=== PATIENT | male | born 1935 | race Caucasian/White ===

== ENCOUNTER 2017-04-06 17:12 | Emergency (ER) | payer MEDICARE, BC ==
[~2017-04-06] VITALS: Ht 177.8 cm; Wt 89.0 kg
[~2017-04-06 17:12] MED LIST: ASPI81 PO; CLOP75 PO; IMDU60TA PO; RIVA10 PO; TOPR25TA2 PO; ZOCO80TA PO
[2017-04-06 17:19] VITALS: BP 128/62; PULSE 71; RESP 16; TEMP 98.1; O2SAT 96
[2017-04-06] MEDS ORDERED: SODIUM CHLORIDE 0.9% FLUSH 10 ML FLUSH IV FLUSH PRN (17:30)
[2017-04-06] MEDS ORDERED: METO50TA11 PO (17:36)
[2017-04-06] MEDS ORDERED: CLOP75TA PO (17:36)
[2017-04-06] MEDS ORDERED: ISOS60TA PO (17:36)
[2017-04-06] MEDS ORDERED: ATOR1TAB18 PO (17:36)
[2017-04-06] MEDS ORDERED: METR250T15 PO (17:36)
[2017-04-06] MEDS ORDERED: NIAC1TAB PO (17:36)
[2017-04-06 17:59] LABS: AUTOMATED NEUTROPHIL # 4.5 TH/MM3 (1.8-7.7); BASOPHIL % 0.4 % (0.0-2.0); EOSINOPHIL # 0.1 TH/MM3 (0-0.4); EOSINOPHIL % 1.8 % (0.0-4.0); HEMATOCRIT 40.7 % (39.0-51.0); HEMO FLAGS DIFF FINAL; LYMPH % 19.3 % (9.0-44.0); LYMPHOCYTE # 1.3 TH/MM3 (1.0-4.8); MEAN CELL VOLUME 89.9 FL (80.0-100.0); MEAN CORPUSCULAR HEMOGLOBIN 30.7 PG (27.0-34.0); MEAN CORPUSCULAR HGB CONC 34.1 % (32.0-36.0); MONO % 13.2 % (0.0-8.0); NEUT % 65.3 % (16.0-70.0); PLATELET COUNT 258 TH/MM3 (150-450); RED BLOOD COUNT 4.52 MIL/MM3 (4.50-5.90); RED CELL DISTRIBUTION WIDTH 13.1 % (11.6-17.2); WHITE BLOOD COUNT 6.8 TH/MM3 (4.0-11.0)
--- NOTE | 2017-04-06 17:59 | PD ---
HPI Chief Complaint: Abdominal Pain Time Seen by Provider: 17:22 Travel History International Travel<30 days: No Contact w/Intl Traveler<30days: No Traveled to known affect area: No History of Present Illness HPI 82-year-old male arrives here complaining of diarrhea for 2 days. He also has pain left upper quadrant. Appetite has been decreased. He is unsure if he has ingested any idiosyncratic food. No vomiting. No fever. Onset gradual. Timing is constant. There is no radiation of the left upper quadrant pain. He reports at least 15 episodes of diarrhea. Diarrhea has been nonbloody. PFSH Past Medical History Autoimmune Disease: No Cancer: No Cardiovascular Problems: Yes (CABG X3,[place]) High Cholesterol: Yes Chemotherapy: No Chest Pain: Yes Congestive Heart Failure: No Diabetes: No Endocrine: No Glaucoma: No Genitourinary: Yes Hepatitis: No Hiatal Hernia: No Hypertension: Yes Immune Disorder: No Kidney Stones: Yes Musculoskeletal: No Neurologic: No Psychiatric: No Reproductive: No Respiratory: No Myocardial Infarction: Yes (1988) Radiation Therapy: No Thyroid Disease: No Past Surgical History Abdominal Surgery: No AICD: No Cardiac Surgery: Yes (CABG 1988) Ear Surgery: No Eye Surgery: Yes (LEFT AND RIGHT CATARACT SURGERY) Genitourinary Surgery: No Gynecologic Surgery: No Oral Surgery: No Pacemaker: No Thoracic Surgery: No Other Surgery: Yes Social History Alcohol Use: Yes (VERY RARELY) Tobacco Use: No (30 YEARS AGO QUIT) Substance Use: No Allergies-Medications (Allergen,Severity, Reaction): Coded Allergies: No Known Allergies (Verified , 04/06/17) Reported Meds & Prescriptions Reported Meds & Active Scripts Active Lomotil (Diphenoxylate-Atropine) 2.5-0.025 Mg Tab 1 Tab PO Q6H PRN Reported Metronidazole 250 Mg Tab 250 Mg PO TID Atorvastatin (Atorvastatin Calcium) 80 Mg Tab 80 Mg PO HS Isosorbide Mononitrate ER (Isosorbide Mononitrate) 60 Mg Tab 60 Mg PO DAILY Metoprolol Succinate ER 24 HR (Metoprolol Succinate) 50 Mg Tab 50 Mg PO DAILY Niacin ER 500 Mg Tab 500 Mg PO HS Clopidogrel (Clopidogrel Bisulfate) 75 Mg Tab 75 Mg PO DAILY Review of Systems Except as stated in HPI: all other systems reviewed are Neg Physical Exam Narrative GENERAL: 82-year-old male well-nourished well-developed no acute distress SKIN: Focused skin assessment warm/dry. HEAD: Atraumatic. Normocephalic. EYES: Pupils equal and round. No scleral icterus. No injection or drainage. ENT: No nasal bleeding or discharge. Mucous membranes pink and moist. NECK: Trachea midline. No JVD. CARDIOVASCULAR: Regular rate and rhythm. No murmur appreciated. RESPIRATORY: No accessory muscle use. Clear to auscultation. Breath sounds equal bilaterally. GASTROINTESTINAL: Soft. Tenderness to palpation in the left upper quadrant. MUSCULOSKELETAL: No obvious deformities. No clubbing. No cyanosis. No edema. NEUROLOGICAL: Awake and alert. No obvious cranial nerve deficits. Motor grossly within normal limits. Normal speech. PSYCHIATRIC: Appropriate mood and affect; insight and judgment normal. Data Data Last Documented VS Vital Signs Date Time Temp Pulse Resp B/P Pulse Ox O2 Delivery O2 Flow Rate FiO2 04/06/17 19:19 97.6 82 16 122/62 97 04/06/17 18:00 Room Air Vital signs reviewed Orders Complete Blood Count With Diff (04/06/17 17:27) Comprehensive Metabolic Panel (04/06/17 17:27) Lipase (04/06/17 17:27) Ct Abd/Pel W Iv Contrast(Rout) (04/06/17 17:27) Iv Access Insert/Monitor (04/06/17 17:27) Ecg Monitoring (04/06/17 17:27) Oximetry (04/06/17 17:27) Sodium Chloride 0.9% Flush (Ns Flush) (04/06/17 17:30) Iohexol 350 Inj (Omnipaque 350 Inj) (04/06/17 18:35) Sodium Chlorid 0.9% 500 Ml Inj (Ns 500 M (04/06/17 18:45) Labs Laboratory Tests Test 04/06/17 17:50 White Blood Count 6.8 TH/MM3 Red Blood Count 4.52 MIL/MM3 Hemoglobin 13.9 GM/DL Hematocrit 40.7 % Mean Corpuscular Volume 89.9 FL Mean Corpuscular Hemoglobin 30.7 PG Mean Corpuscular Hemoglobin 34.1 % Concent Red Cell Distribution Width 13.1 % Platelet Count 258 TH/MM3 Mean Platelet Volume 6.9 FL Neutrophils (%) (Auto) 65.3 % Lymphocytes (%) (Auto) 19.3 % Monocytes (%) (Auto) 13.2 % Eosinophils (%) (Auto) 1.8 % Basophils (%) (Auto) 0.4 % Neutrophils # (Auto) 4.5 TH/MM3 Lymphocytes # (Auto) 1.3 TH/MM3 Monocytes # (Auto) 0.9 TH/MM3 Eosinophils # (Auto) 0.1 TH/MM3 Basophils # (Auto) 0.0 TH/MM3 CBC Comment DIFF FINAL Differential Comment Sodium Level 143 MEQ/L Potassium Level 3.6 MEQ/L Chloride Level 110 MEQ/L Carbon Dioxide Level 24.2 MEQ/L Anion Gap 9 MEQ/L Blood Urea Nitrogen 11 MG/DL Creatinine 1.00 MG/DL Estimat Glomerular Filtration 72 ML/MIN Rate Random Glucose 90 MG/DL Calcium Level 7.9 MG/DL Total Bilirubin 0.8 MG/DL Aspartate Amino Transf 51 U/L (AST/SGOT) Alanine Aminotransferase 79 U/L (ALT/SGPT) Alkaline Phosphatase 76 U/L Total Protein 6.6 GM/DL Albumin 3.4 GM/DL Lipase 157 U/L [facility] Medical Decision Making Medical Screen Exam Complete: Yes Emergency Medical Condition: Yes Medical Record Reviewed: Yes Differential Diagnosis Constipation, Gastritis, Acute Cholecystitis, Biliary Colic, Pancreatitis, BELTRAN , Hepatitis, Bowel Obstruction, Cystitis, Mesenteric Ischemia, AAA, Appendicitis , Renal Stone/Hydronephrosis, GERD, perforated viscous Narrative Course CBC & BMP Diagram 04/06/17 17:50 Last Impressions Abdomen/Pelvis CT 04/06/17 1727 Signed Impressions: Service Date/Time: Thursday, April 06, 2017 18:14 - CONCLUSION: 1. Mild dilation of proximal small bowel loops and right inguinal hernia with small bowel partially extending into the orifice of the hernia. There is some fluid within the right hernial sac. The distal small bowel loops are fluid filled, but not dilated. The findings suggest possible partial obstruction related to the right inguinal hernia. 2. 12 mm calcified stone lower pole of the left kidney with segmental hydronephrosis in the lower pole collecting system. Eran Aguayo MD THERE IS NO INGUINAL HERNIA ON EXAM, NOR IS THERE ABDOMINAL PAIN OR VOMITING. THE PRESENTATION IS NOT CONSISTENT WITH SMALL BOWEL OBSTRUCTION. PT IS WITHOUT COMPLAINT AT 1910. HE IS READY TO GO HOME AND CONSIDERED SAFE FOR DISCHARGE. RETURN PRECAUTIONS DETAILED WITH PATIENT AND COMPANY. BOTH ARE IN AGREEMENT WITH PLAN: TRACY WORRELL, F/U W PMD. Diagnosis Primary Impression: Diarrhea Qualified Code: R19.7 - Diarrhea, unspecified type Referrals: Estrada De La Rosa MD 2 days Additional Instructions: You have a choice when it comes to health care, and we are glad that you chose [facility]. Hopefully, we have met your expectations on today's visit. You are welcome to return to [facility] at any time, as we are committed to meeting the health care needs of our community. IF YOU DEVELOP ABDOMINAL PAIN, VOMITING OR FEVER PLEASE RETURN TO THE ER WITHOUT DELAY ESPECIALLY IF IT OCCURS WITHIN THE NEXT 8 HOURS. Med/Other Pt SpecificInfo: Prescription(s) given Scripts Diphenoxylate-Atropine (Lomotil)2.5-0.025 Mg Tab1 Tab PO Q6H PRN (DIARRHEA) #6 TAB Ref 0 Prov:Flaco Kruger MD 04/06/17 Disposition: 01 DISCHARGE HOME Condition: Stable Flaco Kruger MD Apr 06, 2017 17:59
[2017-04-06 18:00] VITALS: RESP 18; O2SAT 96
[2017-04-06 18:06] LABS: CHLORIDE 110 MEQ/L (98-107); POTASSIUM 3.6 MEQ/L (3.5-5.1); SODIUM (NA) 143 MEQ/L (136-145)
[2017-04-06 18:11] LABS: ANION GAP 9 MEQ/L (5-15); BICARBONATE 24.2 MEQ/L (21.0-32.0); BLOOD UREA NITROGEN 11 MG/DL (7-18)
[2017-04-06 18:13] LABS: ALT (GPT) 79 U/L (12-78)
[2017-04-06 18:14] LABS: AST (GOT) 51 U/L (15-37); GLOMERULAR FILTRATION RATE 72 ML/MIN (>89)
[2017-04-06 18:15] LABS: TOTAL BILIRUBIN ADULT 0.8 MG/DL (0.2-1.0)
[2017-04-06 18:16] LABS: ALKALINE PHOSPHATASE 76 U/L (45-117)
[2017-04-06] MEDS ORDERED: IOHEXOL 350 MG/ML 10 ML VIAL (for RAD DIAG) IV ONE (18:35)
[2017-04-06] MEDS ORDERED: SODIUM CHLORID 0.9% 500 ML INJ 500 ML IV ONE (18:45)
--- NOTE | 2017-04-06 18:51 | RADRPT ---
EXAM DATE/TIME: 04/06/2017 18:14 [place] COMPARISON: No previous studies available for comparison. INDICATIONS : Left upper quadrant pain and diarrhea. IV CONTRAST: 85 cc Omnipaque 350 (iohexol) IV ORAL CONTRAST: No oral contrast ingested. RADIATION DOSE: 11.67 CTDIvol (mGy) MEDICAL HISTORY : Cardiovascular disease. Hypertension. Renal calculi. SURGICAL HISTORY : CABG ENCOUNTER: Initial ACUITY: 1 week PAIN SCALE: 3/10 LOCATION: Left upper quadrant TECHNIQUE: Volumetric scanning of the abdomen and pelvis was performed. Using automated exposure control and ad justment of the mA and/or kV according to patient size, radiation dose was kept as low as reasonably achievable to obtain optimal diagnostic quality images. DICOM format image data is available electro nically for review and comparison. FINDINGS: LOWER LUNGS: The visualized lower lungs are clear. LIVER: Homogeneous density without lesion. There is no dilation of the biliary tree. Cholecystectomy. SPLEEN: Normal size without lesion. PANCREAS: Within normal limits. KIDNEYS: Symmetric renal size. The right kidney has a normal morphology. In the lower pole the left kidney, there is a 12 mm calcified stone with fluid inferior in the renal sinus suggesting dilated lower pole calyces. No hydronephrosis in the upper pole. The left ureter is normal in dimension. ADRENAL GLANDS: Within normal limits. VASCULAR: There is no aortic aneurysm. Arteriosclerotic calcification. BOWEL/MESENTERY: There is mild dilation of multiple loops of small bowel in the left upper quadrant measuring up to 2. 8 cm. No air fluid levels seen. Small bowel loops are fluid filled ovoid down to the distal small b owel. Distal small bowel measures up to 2.3 cm in dimension. There are several loops of small bowel which pass close to the right inguinal hernia orifice. ABDOMINAL WALL: Within normal limits. RETROPERITONEUM: There is no lymphadenopathy. BLADDER: Nondistended. REPRODUCTIVE: Within normal limits. INGUINAL: There is a right inguinal hernia which measures 5.5 cm in superior/inferior extent. Loops of small b owel extend near and partially into the orifice of the inguinal hernia. There is also some fluid in the right hernia sac. MUSCULOSKELETAL: Within normal limits for patient age. CONCLUSION: 1. Mild dilation of proximal small bowel loops and right inguinal hernia with small bowel partially e xtending into the orifice of the hernia. There is some fluid within the right hernial sac. The dist al small bowel loops are fluid filled, but not dilated. The findings suggest possible partial obstru ction related to the right inguinal hernia. 2. 12 mm calcified stone lower pole of the left kidney with segmental hydronephrosis in the lower nelia e collecting system. Eran Aguayo MD on April 06, 2017 at 18:38 Board Certified Radiologist. This report was verified electronically.
[2017-04-06] MEDS ORDERED: LOMO2.5T PO (19:03)
[2017-04-06 19:19] VITALS: BP 122/62; TEMP 97.6
== END 2017-04-06 19:25 | disposition home or self-care (01) ==
LOC: PHED 17:12
DX: R19.7 Diarrhea, unspecified (principal); R10.12 Left upper quadrant pain; R63.0 Anorexia; I10 Essential (primary) hypertension; E78.00 Pure hypercholesterolemia, unspecified; I25.2 Old myocardial infarction; Z86.79 Personal history of other diseases of the circulatory system; Z87.448 Personal history of other diseases of urinary system
CPT/HCPCS: 74177; 80053; 83690; 85025; 99285; Q9967

== ENCOUNTER → 2017-06-29 | Day surgery (SDC) | payer MEDICARE, BC ==
[~2017-06-29] MED LIST changes: +ACETAMINOPHEN 1000 MG/100 ML 100 ML IV ONE; -ASPI81 PO; +ATOR1TAB18 PO; +BUPIVACAINE/EPINEPHRINE 0.5% PF 10 ML VIAL ONE; -CLOP75 PO; +CLOP75TA PO; -IMDU60TA PO; +ISOS60TA PO; +KETOROLAC TROMETHAMINE 30 MG/ML (IVP) VIAL IV PUSH ONE; +LACTATED RINGER'S 1000 ML INJ 1,000 ML ONE; +LIDOCAINE 1%/EPINEPHrine 1:100,000 SOLN 30 ML VIAL ONE; +LOMO2.5T PO; +METO50TA11 PO; +METR250T15 PO; +MIDAZOLAM HCL 2 MG/2 ML VIAL ONE; +NIAC1TAB PO; +PROPOFOL 100 MG/10 ML INJ IV ONE; -RIVA10 PO; +SODIUM CHLOR 0.9% 250 ML BAG IV ONE; -TOPR25TA2 PO; +VANCOMYCIN HCL 1000 MG VIAL ONE; -ZOCO80TA PO; +ceFAZolin INJ 1,000 MG VIAL ONE
--- NOTE | 2017-06-29 10:16 | MP ---
cc: CAMILLE DANIEL M.D., ASHRAF S. M.D. MAKARY, WAFIK F. M.D. DATE OF SURGERY 06/29/2017 PROCEDURE Right inguinal hernia repair with mesh. PREOPERATIVE DIAGNOSIS Reducible symptomatic right inguinal hernia. POSTOPERATIVE DIAGNOSIS Reducible indirect symptomatic right inguinal hernia. ANESTHESIA LMA. SURGEON MD Ryan [employer] Sisi Flores MATERIALS CLERK PROCEDURE IN DETAIL The patient was seen in the holding area and the right groin marked by the undersigned and confirmed by the patient. He was taken to the operating room and placed on the operating table in the supine position. After an adequate level of laryngeal mask anesthesia was achieved, the right groin was shaved, prepped and draped. Time-out was taken confirming correct patient site and procedure to be performed. The skin and subcutaneous tissue was infiltrated with local anesthetic and an oblique incision made directly over the right groin. Dissection was carried down to the external oblique fascia where further subfascial injections were made with local anesthetic. The external oblique fascia was and incised in the direction of the fibers and the underlying tissues swept free from the fascia. The spermatic cord structures were brought up on a Doni drain and dissection carried back to the internal ring. The patient had fairly sizable spermatic cord structures and the hernia sac was dissected free from the surrounding structures. The sac was opened at one point and fatty material was dissected off of the sac well as it was adhered to it. This was inverted back into the abdominal cavity and the hernia sac closed with a pursestring 3-0 silk suture. The excess sac was trimmed with electrocautery and the stump which was hemostatic was allowed to retract back into the abdominal cavity. At this point a 3 x 6-inch piece of Atrium ProLite mesh was brought up and placed into the defect. The mesh was transfixed to the pubic tubercle with a 2-0 Prolene suture which was then run along the shelving edge of the inguinal ligament to complete the lateral edge of the repair. The mesh was slit longitudinally and trimmed to size to fit the defect. Interrupted 2-0 Prolene suture was then placed along the transversalis fascia and conjoined tendon to complete the medial edge of the repair. Care was taken to avoid placing sutures near the iliohypogastric nerve which was left in its elem tissue and not dissected free. The medial leaf of mesh was then brought over the lateral leaf to create a new internal ring. Three 2-0 Prolene sutures were placed to create a new internal ring and a single 2-0 Prolene was placed medially to close the ring down further as the patient had substantial tissue. Dissection of the spermatic cord structures failed to reveal a lipoma of the cord and thus the cremasteric muscles and spermatic cord were left as intact as possible. With this completed, and with hemostasis assured, the remaining local anesthetic was injected into the transversalis fascia and subcutaneous tissues. The external oblique fascia was then closed with a running 3-0 Vicryl suture with the underlying tissues excluded from the closure. The wound was reapproximated with interrupted 3-0 Vicryl suture and the skin closed with 5-0 PDS in a running subcuticular fashion. The wound was dressed with Telfa and Tegaderm and the patient was taken back to the recovery room extubated and in stable condition. He tolerated the procedure well. MD SCOT Pham/SSB /9:52 AM /10:05 AM
== END | disposition home or self-care (01) ==
LOC: ESDC 06:41
PROVIDERS: ATTEND Surgery Trauma Surgery
DX: K40.90 Unilateral inguinal hernia, without obstruction or gangrene, not specified as recurrent (principal)
CPT/HCPCS: 00830; 49505; 88304; C1781; J0131; J0690; J1885; J2250; J3010; J3370; J7050; J7120